=== PATIENT | female | born 1995 | race Caucasian/White ===

== ENCOUNTER 2021-06-12 03:16 | Inpatient (IN) ==
[2021-06-12 03:28] VITALS: BMI 43.0
[2021-06-12] MEDS ORDERED: D5 1/2 NS 1,000 ML 1,000 ML IV ONE (03:31)
[2021-06-12 03:56] LABS: AMNISURE ROM TEST THERE IS A RUPTURE (NO RUPTURE)
[2021-06-12] MEDS ORDERED: D5 1/2 NS 1,000 ML 1,000 ML IV SCH ×2 (04:00→05:00)
[2021-06-12 04:08] LABS: BASOPHILS # (AUTO) 0.1 X10^3/uL (0.0-0.1); BASOPHILS % (AUTO) 0.5 % (0.2-1.0); EOSINOPHILS # (AUTO) 0.1 x10^3/uL (0.0-0.2); EOSINOPHILS % (AUTO) 0.6 % (0.9-2.9); HEMATOCRIT 37.2 % (36.0-47.0); HEMOGLOBIN 12.7 g/dL (12.0-16.0); LYMPHOCYTES # (AUTO) 2.4 X10^3/uL (1.3-2.9); LYMPHOCYTES % (AUTO) 16.6 % (21.0-51.0); MEAN CORPUSCULAR HEMOGLOBIN 28.5 pg (27.0-34.0); MEAN CORPUSCULAR HGB CONC 34.1 g/dL (33.0-35.0); MEAN CORPUSCULAR VOLUME 83.7 fL (80.0-100.0); MEAN PLATELET VOLUME 9.5 fL (7.4-11.0); MONOCYTES % (AUTO) 6.6 % (0.0-13.0); NEUTROPHILS % (AUTO) 75.7 % (42.0-75.0); PLATELET COUNT 245 X10^3/uL (150.0-450.0); RED BLOOD COUNT 4.45 X10^6/uL (3.5-5.4); RED CELL DISTRIBUTION WIDTH 13.3 % (11.6-16.5); WHITE BLOOD COUNT 14.5 X10^3/uL (3.6-10.0)
[2021-06-12 04:17] LABS: ALANINE AMINOTRANSFERASE 23 Units/L (12-78); ALBUMIN 2.5 g/dL (3.4-5.0); ALKALINE PHOSPHATASE 173 Units/L (46-116); ASPARTATE AMINO TRANSFERASE 12 Units/L (15-37); BLOOD UREA NITROGEN 10 mg/dL (7-18); CALCIUM 8.9 mg/dL (8.5-10.1); CARBON DIOXIDE 21.8 mmol/L (21-32); CHLORIDE 102 mmol/L (98-107); COR CA(FOR HYPOALB) 10.1 mg/dL (8.5-10.1); SODIUM 135 mmol/L (136-145); TOTAL PROTEIN 6.9 g/dL (6.4-8.2); eGFR NON BLACK RACES > 60 (>60)
[2021-06-12] MEDS ORDERED: PITOCIN IVP ONE (04:55)
[2021-06-12] MEDS ORDERED: PHENERGAN INJ 25 MG IM PRN ×2 (04:55→12:33)
[2021-06-12] MEDS ORDERED: REGLAN INJ 10 MG VIAL IVP PRN (04:55)
[2021-06-12] MEDS ORDERED: D5 LR + PITOCIN 10 UNITS/L 10 UNITS/1,000 ML BAG IV PRN (05:00)
[2021-06-12] MEDS ORDERED: STADOL INJ IVP PRN (05:03)
[2021-06-12] MEDS ORDERED: BETADINE SOLN ONE (05:17)
[2021-06-12] MEDS ORDERED: PITOCIN ONE (05:17)
[2021-06-12] MEDS ORDERED: D5 1/2 NS 1,000 mL + PITOCIN 20 UNITS/L IV 20 UNITS/1,000 ML BAG IV ONE (05:18)
[2021-06-12] MEDS ORDERED: D5 LR + PITOCIN 10 UNITS/L 10 UNITS/1,000 ML BAG IV ONE (05:18)
[2021-06-12] MEDS ORDERED: FENTANYL VIAL INJ 100 mcg ONE ×2 (06:35→06:36)
[2021-06-12] MEDS ORDERED: LR 1,000 ML IV 1,000 ML IV ONE (06:35)
--- NOTE | 2021-06-12 06:35 | DR.OB ---
OB Quick Note - Assessment/Plan Assessment/Plan: L&D 06/12/21 at 6:25am S-No complaint. O-Afebrile,VSS OGZ=134 with good LTV, +accel, no decel. CTX=q 1 1/2 to 2 min., strong by palpation CVX=3cm/80%/0/VTX SROM with light meconium. IUPC and FSE placed. A-IUP at 38 1/7 weeks in labor P-Cont. pitocin augmentation Anticipate
[2021-06-12] MEDS ORDERED: NAROPIN EPIDURAL 0.2% 100 ML ONE (06:36)
[2021-06-12 10:06] LABS: BILIRUBIN,URINE NEGATIVE (NEGATIVE); BLOOD/HEMOGLOBIN,URINE 3+ (NEGATIVE); GLUCOSE, URINE NEGATIVE (NEGATIVE); KETONES,URINE NEGATIVE (NEGATIVE); LEUKOCYTE ESTERASE ,URINE 1+ (NEGATIVE); NITRITES,URINE NEGATIVE (NEGATIVE); PROTEIN,URINE 1+ (NEGATIVE); UROBILINOGEN,URINE NORMAL (NORMAL)
[2021-06-12 10:08] LABS: APPEARANCE,URINE CLEAR (CLEAR); COLOR,URINE YELLOW (YELLOW)
[2021-06-12 10:19] LABS: BACTERIA,URINE NEGATIVE /HPF (NEGATIVE); SQUAMOUS EPITHELIAL CELL,UR RARE /HPF (NEGATIVE)
[2021-06-12 10:20] LABS: AMORPHOUS SEDIMENT,UR 1+ /HPF (NEGATIVE)
--- NOTE | 2021-06-12 12:32 | DR.OB ---
OB Quick Note - Assessment/Plan Assessment/Plan: Delivery Note EXTERN 06/12/21 at 12:10pm Patient complete and pushing. Head delivered over intact perineum. No nuchal cord. Nose and mouth bulb suctioned. Body delivered over intact perineum. Cord clamped x 2 and cut. Infant handed to attendant. Cord sent for gases. Placenta delivered spontaneously / intact / 3 vessel cord. No CVX / vaginal tears noted. A small midline second degree tear noted and repaired with 0- vicryl in usual fashion. Viable female , VTX/OA, with compound presentation noted (right hand to face), wt=6'4" and 9/9, stable to NBN. Mother stable to RR. EDR=[id number].
[2021-06-12] MEDS ORDERED: MOTRIN TAB 800 MG PO PRN (12:33)
[2021-06-12] MEDS ORDERED: MILK OF MAGNESIA PO PRN (13:31)
[2021-06-12] MEDS ORDERED: AMBIEN PO PRN (13:31)
[2021-06-12] MEDS ORDERED: ADACEL or BOOSTRIX TDaP VACCINE IM ONE (13:31)
[2021-06-12] MEDS ORDERED: DERMOPLAST PAIN RELIEF SPRAY TOP PRN (13:31)
[2021-06-12] MEDS ORDERED: ZOLOFT PO SCH (21:00)
[2021-06-13 05:53] LABS: HEMATOCRIT 31.2 % (36.0-47.0)
[2021-06-13 05:58] LABS: HEMOGLOBIN 10.7 g/dL (12.0-16.0)
[2021-06-13] MEDS: D5 1/2 NS 1,000 ML 1,000 ML with PITOCIN 20 UNITS IV SCH ×6 (06:36→09:22)
[2021-06-13] MEDS ORDERED: ZOLOFT PO SCH (09:00)
[2021-06-13] MEDS ORDERED: PRENATAL PLUS PO SCH (09:00)
[2021-06-13 14:46] VITALS: BP 92/47
== END 2021-06-13 14:40 | disposition home or self-care (01) | DRG 807 ==
LOC: ER 03:16 → LD 04:53 → MED/SURG 14:19
PROVIDERS: ADMIT Specialist; ATTEND Specialist
DX: Z3A.38 38 weeks gestation of pregnancy; O70.1 Second degree perineal laceration during delivery; O99.343 Other mental disorders complicating pregnancy, third trimester; F41.8 Other specified anxiety disorders; O35.2XX0 Maternal care for (suspected) hereditary disease in fetus, not applicable or unspecified; Z37.0 Single live birth; Z14.1 Cystic fibrosis carrier